=== PATIENT | female | born 1945 ===

== ENCOUNTER 2016-08-12 11:00 | Outpatient (RCR) | payer OTHER | END 2016-08-28 | disposition home or self-care (01) | LOC: EDBD → PTY 11:00 | DX: M54.42 Lumbago with sciatica, left side (principal); M54.9 Dorsalgia, unspecified | CPT/HCPCS: 97110; 97140; 97162; G0283 ==

== ENCOUNTER 2016-09-09 08:57 | Outpatient (RCR) | payer OTHER | END 2016-09-28 | disposition home or self-care (01) | LOC: PTY 08:57 | DX: M54.42 Lumbago with sciatica, left side (principal); M54.9 Dorsalgia, unspecified | CPT/HCPCS: 97110; 97140; G0283 ==

== ENCOUNTER 2016-10-21 09:04 | Outpatient (RCR) | payer OTHER | END 2016-10-29 | disposition home or self-care (01) | LOC: PTY 09:04 | DX: M54.42 Lumbago with sciatica, left side (principal); M54.9 Dorsalgia, unspecified | CPT/HCPCS: 97035; 97110; 97140; G0283 ==

== ENCOUNTER 2016-11-20 09:26 | Outpatient (RCR) | payer OTHER | END 2016-11-28 | disposition home or self-care (01) | LOC: PTY 09:26 | DX: M54.42 Lumbago with sciatica, left side (principal); M54.9 Dorsalgia, unspecified | CPT/HCPCS: 97035; 97110; G0283 ==